=== PATIENT | female | born 1950 | race Caucasian/White ===

== ENCOUNTER 2017-06-22 14:10 | Inpatient (IN) | payer OTHER, MEDICARE ==
[~2017-06-22] VITALS: Ht 160 cm; Wt 83.2 kg
[~2017-06-22 14:10] MED LIST: LISINOPRIL10 MG PO; NORCO 5-325 TA1 EACH PO
--- OUTSIDE RECORDS SUMMARY | 2017-06-22 14:14 | XMS REPORT | Summary of Care ---
Author Author Jackeline Edmonds R.N. Organization Unknown Address Unknown Phone Unavailable Care Team Providers Care Garment Alteration Examiner Name Role Phone CHRISTINA HOPKINS M.D. Unavailable Unavailable Jackeline Edmonds R.N. Unavailable Unavailable Unavailable Unavailable Functional Status Name Dates Details Functional status health issues are not documented Status: Name Dates Details Cognitive status health issues are not documented Status: Problems Name Dates Details Encounter for routine gynecological examination with Papanicolaou smear of cervix (V72.31, Z01.419) Status: Active Ventral hernia (553.20, K43.9) Status: Active Postmenopausal state (V49.81, Z78.0) Status: Active Benign hypertension (401.1, I10) Status: Active Breast cancer screening (V76.10, Z12.31) Status: Active Medications Name Dates Details Lisinopril 20 MG Oral Tablet TAKE 1 TABLET TWICE DAILY Quantity: 180 KELLIE M.Rica, CHRISTINA Active Multi-Vitamin Daily TABS TAKE 1 TABLET DAILY. * Refills: 0 Active Fish Oil 1000 MG Oral Capsule TAKE 1 CAPSULE TWICE DAILY * Refills: 0 Active Calcium + D TABS TAKE 1 TABLET DAILY. * Refills: 0 Active Allergies and Adverse Reactions Name Dates Details No Known Allergies (Allergy) Status: Active Past Medical History Name Dates Details History of Hernia, incisional (553.21, K43.2) Status: Resolved History of hyperlipidemia (V12.29, Z86.39) Status: Resolved History of hypertension (V12.59, Z86.79) Status: Resolved History of malignant neoplasm of kidney (V10.52, Z85.528) Status: Resolved Procedures Procedure Dates Details History of Kidney Surgery Completed History of Tonsillectomy Completed Immunization Name Dates Details Fluzone INJ on: 08-Apr-2015 Family History Name Dates Details Family history of alcoholism (V17.0, Z81.1) Status: Active Family history of Bipolar disorder (manic depression) (296.80, F31.9) Status: Active Name Dates Details Family history of hypertension (V17.49, Z82.49) Status: Active Name Dates Details Family history of alcoholism (V17.0, Z81.1) Status: Active Family history of malignant neoplasm (V16.9, Z80.9) Status: Active Family history of cardiac disorder (V17.49, Z82.49) Status: Active Family history of hypertension (V17.49, Z82.49) Status: Active Family history of depression (V17.0, Z81.8) Status: Active Family history of type 2 diabetes mellitus (V18.0, Z83.3) Status: Active Name Dates Details Family history of depression (V17.0, Z81.8) Status: Active Social History Name Dates Details - Status: Name Dates Details Former smoker Vital Signs Date Test Result Details No Known Vitals to report Results Date Description Value Details Results not documented Plan of Care Name Dates Details Planned Observations Planned Goals not documented Interventions Provided Discussion/Summary* Guideline Used: * Other: Lola Padilla * Recommended Disposition: Call back with any further questions/concerns * Action Taken: * Patient informed/educated about nurse line * Intended Caller Action: * Other: Lola Padilla * Additional Information: * Caller verbalized understandings of this call and agree to the recommended disposition at this time. Caller was also educated on nurse triage line use & encouraged to call back for additional support or questions. Instructions Name Dates Details Instructions not documented Encounters Appointment; CHRISTINA HOPKINS M.D. Encounter Diagnosis: Problem not documented On: 01-Jan-2016 13:45 Appointment; DOTTY CARO M.D. Encounter Diagnosis: Problem not documented On: 14-Jan-2016 14:00 Appointment; RIK TERAN Encounter Diagnosis: Problem not documented On: 21-Jan-2016 9:00 Appointment; RIK TERAN Encounter Diagnosis: Problem not documented On: 26-Jan-2016 13:00 Appointment; DOTTY CARO M.D. Encounter Diagnosis: Problem not documented On: 05-Mar-2016 9:30
--- OUTSIDE RECORDS SUMMARY | 2017-06-22 14:14 | XMS REPORT | Continuity of Care Document ---
Author Author [facility] Organization [facility] Address [address] [place] [address] Phone Unavailable Care Team Providers Care Yacht Hand Name Role Phone CHRISTINA HOPKINS MD PCP Insurance Providers Guarantor Arianna Cole Address [address] [place] [address] Email [email or web address] Payer Miscellaneous Hmo Policy Number [id number] Subscriber's Name Arianna Cole Relationship 18 Self / Same As Patient Effective Date 15 Payer Medicare A Only Policy Number [id number] Subscriber's Name Julee Colethia A Relationship 18 Self / Same As Patient Effective Date 15 Advance Directives Directive Response Recorded Date/Time Does the patient have an advance directive? No 06/14/17 3:10pm If yes, is advance directive on file with [facility]? No 11/04/10 8:42am If not on file with [facility] will patient provide a copy? No 11/04/10 8:42am Do you have a Directive to Physician? No 06/13/17 4:39pm Do you have a Medical Power of Inspector Receiving? No 06/13/17 4:39pm Do you have an out of hospital Do Not Resuscitate Order? No 06/13/17 4:39pm Do you have any special needs we should be aware of? No 06/13/17 4:39pm Do you have a support person here with you today? Yes 06/13/17 4:39pm Did patient receive Notice of Privacy Practices? Yes 06/13/17 4:39pm Did patient receive patient rights and responsibilities? Yes 06/13/17 4:39pm Problems Medical Problem Onset Date Status Acute calculous cholecystitis Unknown Cramp in lower leg Unknown Acute Medications Current Home Medications Medication Dose Units Route Directions Days Qty Instructions Start Date Hydrocodone Bit/Acetaminophen (Datil 5-325 Tablet) 1 Each Tablet 1 Each Oral Every 4 Hours Lisinopril 10 Mg Tablet 20 Mg Oral Twice A Day 30 Tab Social History Social History Problem Response Recorded Date/Time Onset Date Status Hx Psychiatric Problems No 06/14/2017 3:10pm Not Applicable Not Applicable Smoking Status Start Date Stop Date Never Smoker Hospital Discharge Instructions No hospital discharge instruction information available. Plan of Care Discharge Date 06/18/17 3:11pm Disposition HOME, SELF-CARE Instructions/Education Provided Abdominal Pain - Adult Laparoscopy Stitches and Omari Care Prescriptions See Medication Section Additional Instructions/Education FOLLOW UP WITH MD HERNANDEZ AND MD MENDEZ IN ONE WEEK MD HERNANDEZ [phone] MD MENDEZ [phone] Functional Status Query Response Date Recorded FUNCTIONAL STATUS . June 15, 2017 2:39pm Assistive Devices None June 14, 2017 3:10pm Ambulation Ability Independent June 14, 2017 3:10pm Toileting Ability Independent June 17, 2017 1:00pm Allergies, Adverse Reactions, Alerts No known allergies. Immunizations No immunization information available. Vital Signs Acute Vital Signs Vital Response Date/Time Temperature (Fahrenheit) 97.4 degrees F (97.6 - 99.5) 06/18/2017 12:08pm Pulse Pulse Rate (adult) 63 bpm (60 - 90) 06/18/2017 12:08pm Respiratory Rate 18 bpm (12 - 24) 06/18/2017 12:08pm Blood Pressure 145/63 mm Hg 06/18/2017 12:08pm Height 5 ft 3 in 06/13/2017 3:42pm Weight 192.13 lb 06/17/2017 2:35am Body Mass Index 34.0 kg/m^2 06/17/2017 2:35am Results Laboratory Results Test Name Result Units Flags Reference Collection Date/Time Result Date/ Time Comments White Blood Count 5.73 x10e3/uL 4.8-10.8 06/17/2017 6:16am 06/17/2017 7 :08am Red Blood Count 2.91 x10e6/uL L 3.6-5.1 06/17/2017 6:16am 06/17/2017 7: 08am Hemoglobin 8.3 g/dL L 12.0-16.0 06/17/2017 6:16am 06/17/2017 7:08am Hematocrit 25.7 % L 34.2-44.1 06/17/2017 6:16am 06/17/2017 7:08am Mean Corpuscular Volume 88.3 fL 81-99 06/17/2017 6:16am 06/17/2017 7: 08am Mean Corpuscular Hemoglobin 28.5 pg 28-32 06/17/2017 6:16am 06/17/2017 7:08am Mean Corpuscular Hemoglobin Concent 32.3 g/dL 31-35 06/17/2017 6:16am 06/17/2017 7:08am Red Cell Distribution Width 13.0 % 11.7-14.4 06/17/2017 6:16am 2017 7:08am Platelet Count 202 x10e3/uL 140-360 06/17/2017 6:16am 06/17/2017 7: 08am Neutrophils (%) (Auto) 70.2 % 38.7-80.0 06/16/2017 6:08am 06/16/2017 6: 55am Lymphocytes (%) (Auto) 17.6 % L 18.0-39.1 06/16/2017 6:08am 06/16/2017 6 :55am Monocytes (%) (Auto) 9.0 % 4.4-11.3 06/16/2017 6:08am 06/16/2017 6: 55am Eosinophils (%) (Auto) 2.4 % 0.0-6.0 06/16/2017 6:08am 06/16/2017 6: 55am Basophils (%) (Auto) 0.3 % 0.0-1.0 06/16/2017 6:08am 06/16/2017 6:55am IM GRANULOCYTES % 0.5 % 0.0-1.0 06/16/2017 6:08am 06/16/2017 6:55am Neutrophils # (Auto) 6.1 2.1-6.9 06/16/2017 6:08am 06/16/2017 6:55am Lymphocytes # (Auto) 1.5 1.0-3.2 06/16/2017 6:08am 06/16/2017 6:55am Monocytes # (Auto) 0.8 0.2-0.8 06/16/2017 6:08am 06/16/2017 6:55am Eosinophils # (Auto) 0.2 0.0-0.4 06/16/2017 6:08am 06/16/2017 6:55am Basophils # (Auto) 0.0 0.0-0.1 06/16/2017 6:08am 06/16/2017 6:55am Absolute Immature Granulocyte (auto 0.04 x10e3/uL 0-0.1 06/16/2017 6: 08am 06/16/2017 6:55am Urine Color YELLOW YELLOW 06/14/2017 10:00am 06/14/2017 10:42am Urine Clarity CLEAR CLEAR 06/14/2017 10:00am 06/14/2017 10:42am Urine Specific [place] 1.020 1.010-1.025 06/14/2017 10:00am 2017 10:42am Urine pH 5 5 - 7 06/14/2017 10:00am 06/14/2017 10:42am Urine Leukocyte Esterase NEGATIVE NEGATIVE 06/14/2017 10:00am 2017 10:42am Urine Nitrite NEGATIVE NEGATIVE 06/14/2017 10:00am 06/14/2017 10: 42am Urine Protein 1+ H NEGATIVE 06/14/2017 10:00am 06/14/2017 10:42am Urine Glucose (UA) NEGATIVE NEGATIVE 06/14/2017 10:00am 06/14/2017 10 :42am Urine Ketones NEGATIVE NEGATIVE 06/14/2017 10:00am 06/14/2017 10: 42am Urine Urobilinogen 0.2 mg/dL 0.2 - 1 06/14/2017 10:00am 06/14/2017 10: 42am Urine Bilirubin NEGATIVE NEGATIVE 06/14/2017 10:00am 06/14/2017 10: 42am Urine Blood NEGATIVE NEGATIVE 06/14/2017 10:00am 06/14/2017 10:42am Urine WBC NONE /HPF 0-5 06/14/2017 10:00am 06/14/2017 10:46am Urine RBC NONE /HPF 0-5 06/14/2017 10:00am 06/14/2017 10:46am Urine Bacteria RARE /HPF NONE 06/14/2017 10:00am 06/14/2017 10:46am Urine Epithelial Cells NONE /LPF NONE 06/14/2017 10:00am 06/14/2017 10: 46am Urine Amorphous Sediment FEW FEW 06/14/2017 10:00am 06/14/2017 10: 46am Urine Coarse Granular Casts 1-5 H 0 06/14/2017 10:00am 06/14/2017 10: 46am Sodium Level 139 mmol/L 136-145 06/17/2017 6:16am 06/17/2017 7:25am Potassium Level 3.9 mmol/L 3.5-5.1 06/17/2017 6:16am 06/17/2017 7:25am Chloride Level 103 mmol/L 98-107 06/17/2017 6:16am 06/17/2017 7:25am Carbon Dioxide Level 30 mmol/L H 22-29 06/17/2017 6:16am 06/17/2017 7: 25am Anion Gap 9.9 mmol/L 8-06/17/2017 6:16am 06/17/2017 7:25am Blood Urea Nitrogen 9 mg/dL 7-06/17/2017 6:16am 06/17/2017 7:25am Creatinine 0.72 mg/dL 0.57-1.11 06/17/2017 6:16am 06/17/2017 7:25am BUN/Creatinine Ratio 13 6-25 06/17/2017 6:16am 06/17/2017 7:25am Estimat Glomerular Filtration Rate > 60 ML/MIN 60- 06/17/2017 6:16 7:25am Ranges were taken from the National Kidney Disease Education Program and the National Kidney Foundation literature. Reference ranges: 60 or greater: Normal 16-59 (for 3 consecutive months): Chronic kidney disease 15 or less: Kidney failure Glucose Level 105 mg/dL 74-118 06/17/2017 6:1606/17/2017 7:25am Calcium Level 8.1 mg/dL L 8.4-10.2 06/17/2017 6:1606/17/2017 7:25am Total Bilirubin 1.1 mg/dL 0.2-1.2 06/17/2017 6:1606/17/2017 7:25am Aspartate Amino Transf (AST/SGOT) 35 IU/L H 5-34 06/17/2017 6:1606/17 7:25am Alanine Aminotransferase (ALT/SGPT) 49 IU/L 0-55 06/17/2017 6:1601/2018 7:25am Total Protein 5.6 g/dL L 6.5-8.1 06/17/2017 6:1606/17/2017 7:25am Albumin 2.1 g/dL L 3.5-5.0 06/17/2017 6:1606/17/2017 7:25am Globulin 3.5 g/dL 2.3-3.5 06/17/2017 6:1606/17/2017 7:25am Albumin/Globulin Ratio 0.6 L 0.8-2.0 06/17/2017 6:1606/17/2017 7: 25am Alkaline Phosphatase 79 IU/L 40-150 06/17/2017 6:1606/17/2017 7: 25am B-Type Natriuretic Peptide 21.6 pg/mL 0-100 06/13/2017 6:30pm 2017 8:17pm Creatine Kinase 72 IU/L 29-168 06/13/2017 6:30pm 06/13/2017 8:15pm Creatine Kinase MB 0.70 ng/mL 0.00-5.00 06/13/2017 6:30pm 06/13/2017 8: 27pm Troponin I < 0.001 ng/mL 0-0.300 06/13/2017 6:30pm 06/13/2017 8:27pm Amylase Level 40 U/L 25-125 06/14/2017 2:40am 06/14/2017 3:16am Lipase 6 U/L L 8-78 06/14/2017 2:40am 06/14/2017 3:16am Procedures Procedure Status Date Provider(s) Laparoscopic cholecystectomy Completed 06/14/17 SURESH MENDEZ MD gallbladder Active 06/13/17 CLIFFORD CONNOR NP Computed tomography of abdomen and pelvis with contrast Active 06/13/17 CLIFFORD CONNOR NP Encounters Encounter Location Arrival/Admit Date Discharge/Depart Date Attending Provider Discharged Inpatient [facility] 06/14/17 3:26pm 06/18/17 3:11pm CATIA HERNANDEZ MD
[2017-06-22] MEDS ORDERED: SODIUM CHLORIDE 0.9% 1000ML 1,000 ML IV STA (14:16)
[2017-06-22] MEDS ORDERED: ONDANSETRON HCL INJ 2 MG/ML VIAL IV STA (14:16)
[2017-06-22] MEDS ORDERED: DIATRIZOATE MEGL/DIATRIZOA SOD 30 ML BTL PO ONE (14:44)
[2017-06-22 15:03] LABS: BASOPHILS % 0.5 % (0.0-1.0); EOSINOPHILS # (AUTO) 0.1 (0.0-0.4); EOSINOPHILS % 1.4 % (0.0-6.0); HEMATOCRIT 36.2 % (34.2-44.1); HEMOGLOBIN 11.5 g/dL (12.0-16.0); LYMPHOCYTES # (AUTO) 1.6 (1.0-3.2); LYMPHOCYTES % 18.8 % (18.0-39.1); MEAN CORPUSCULAR HEMOGLOBIN 27.8 pg (28-32); MEAN CORPUSCULAR HGB CONC 31.8 g/dL (31-35); MEAN CORPUSCULAR VOLUME 87.4 fL (81-99); MONOCYTES # (AUTO) 0.3 (0.2-0.8); MONOCYTES % 3.5 % (4.4-11.3); NEUTROPHILS # (AUTO) 6.3 (2.1-6.9); NEUTROPHILS % 75.1 % (38.7-80.0); PLATELET COUNT 343 x10e3/uL (140-360); RED BLOOD COUNT 4.14 x10e6/uL (3.6-5.1); RED CELL DISTRIBUTION WIDTH 13.4 % (11.7-14.4)
[2017-06-22] MEDS ORDERED: MORPHINE SULFATE 5 MG/ML VIAL IV ONE (15:15)
[2017-06-22 15:20] LABS: ALANINE AMINOTRANSFERASE 157 IU/L (0-55); ALBUMIN 3.2 g/dL (3.5-5.0); ALBUMIN/GLOBULIN RATIO 0.7 (0.8-2.0); ALKALINE PHOSPHATASE 105 IU/L (40-150); ANION GAP 16.6 mmol/L (8-16); BLOOD UREA NITROGEN 18 mg/dL (7-26); BUN/CREATININE RATIO 22 (6-25); CALCIUM 8.8 mg/dL (8.4-10.2); CARBON DIOXIDE 22 mmol/L (22-29); CHLORIDE 106 mmol/L (98-107); CREATININE, SERUM 0.81 mg/dL (0.57-1.11); EST GLOMERULAR FILTRATION RATE > 60 ML/MIN (60-); GLUCOSE 128 mg/dL (74-118); LIPASE 17 U/L (8-78); POTASSIUM 4.6 mmol/L (3.5-5.1); SODIUM 140 mmol/L (136-145)
[2017-06-22] MEDS ORDERED: MORPHINE SULFATE 2 MG/ML SYR IV SCH (15:30)
--- NOTE | 2017-06-22 18:22 | Diagnostic Imaging Report ---
PROCEDURE: CT ABDOMEN AND PELVIS WITH CONTRAST TECHNIQUE: The abdomen and pelvis were scanned utilizing a multidetector helical scanner from the diaphragm to the lesser trochanter after the IV administration of 100 cc of Isovue 370. Coronal and sagittal multiplanar reformations were obtained. DLP: 610.02 mGy-cm COMPARISON: CT 06/13/2017 INDICATIONS: MID ABDOMINAL PAIN, post cholecystectomy FINDINGS: LOWER THORAX: Mild right basilar atelectasis. HEPATOBILIARY: No focal hepatic lesions. No biliary ductal dilatation. New post-surgical changes related to open cholecystectomy with placement of a drainage catheter in the cholecystectomy bed. No drainable fluid collections in the surgical bed. Mild regional stranding likely represents post-operative changes. SPLEEN: No splenomegaly. PANCREAS: No focal masses or ductal dilatation. ADRENALS: No adrenal nodules. KIDNEYS/URETERS: Right kidney is absent. Left renal 2.2 cm cyst. No hydronephrosis, stones, or solid mass lesions. PELVIC ORGANS/BLADDER: Rounded 3 cm prominence along the posterior right uterine body likely represents a fibroid. Urinary bladder is without focal thickening. PERITONEUM / RETROPERITONEUM: No free air. Stranding in the right upper quadrant and fluid and stranding within the hernia sac. LYMPH NODES: No lymphadenopathy. VESSELS: Moderate scattered atherosclerotic calcifications. No abdominal aortic aneurysm. GI TRACT: Small bowel obstruction within an umbilical hernia resulting in a closed loop obstruction with two transition points (coronal image 29 with upstream dilatation, and coronal image 28 with collapse of the exiting small bowel). Fluid and stranding is noted within the hernia sac. Involved bowel wall appears slightly more hypoattenuating than the bowel wall outside the hernia. No wall thickening or pneumatosis. The hernia sac measures approximately 9.4 x 6.9 x 8 cm with 2.2 x 2.7 cm neck. BONES AND SOFT TISSUES: Skin kvng along an oblique right upper quadrant incision. Degenerative changes of the spine. Slight retrolisthesis of L2 on L3. IMPRESSION: 1. Closed loop obstruction of a small bowel loop within an umbilical hernia. Associated fluid and stranding within the hernia sac, and slightly decreased enhancement of the involved bowel wall are concerning for strangulation. 2. Interval open cholecystectomy with associated post-operative stranding. Right upper quadrant drain in place. No drainable fluid collections. Findings discussed with Dr. Gates on 06/22/2017 at 6:10 pm. Dictated by: Luis Manuel Bryan M.D. on 06/22/2017 at 18:22 Electronically approved by: Luis Manuel Bryan M.D. on 06/22/2017 at 18:22
--- OUTSIDE RECORDS SUMMARY | 2017-06-22 18:57 | XMS REPORT | Summary of Care ---
Author Author Partha Mccann, Ingr[place] Organization Unknown Address [facility] Phone Unavailable Care Team Providers Care Skilled Helper Name Role Phone CHRISTINA HOPKINS M.D. Unavailable Unavailable Ingris Chavis R.N. Unavailable Unavailable Unavailable Unavailable Functional Status [...] 1 TABLET TWICE DAILY Quantity: 180 KELLIE M.D., CHRISTINA Active Multi-Vitamin Daily TABS TAKE 1 [...] Interventions Provided Discussion/Summary* Guideline Used: * Other: ER physician call * Recommended Disposition: Connect with Dr Padilla * Action Taken: * Patient informed/educated about nurse line * Intended Caller Action: * Other: speak with Dr Padilla * Additional Information: * [place] text Dr Padilla @ 1816. Informed caller to call back if no response in 30 mins. Verbalized understanding of call. Instructions Name Dates Details Instructions not documented [...]
[2017-06-22 19:28] VITALS: BP 190/77
[2017-06-22 19:35] VITALS: BP 190/77
[2017-06-22] MEDS: HYDROMORPHONE 1MG/1ML INJ IV PRN ×2 (19:45→23:33)
[2017-06-22] MEDS: ONDANSETRON HCL INJ 2 MG/ML VIAL IV PRN ×2 (19:45→23:33)
[2017-06-22] MEDS: SODIUM CHLORIDE 0.9% 1000ML 1,000 ML IV SCH (19:50)
[2017-06-22] MEDS: PIPERACILLIN/TAZO 2.25 GM 50 ML IV SCH (19:50)
--- NOTE | 2017-06-22 19:58 | Consultation ---
DATE OF CONSULTATION: June 22, 2017 REFERRING PHYSICIAN: Dr. Jeremiah Padilla. HISTORY OF PRESENT ILLNESS: Patient is a 66-year-old female known to me. She was in the hospital and had surgery about a week ago for acute cholecystitis. She was doing well at home and then she developed sudden development of pain in the lower abdomen with nausea and constipation. She came to the emergency room where she was found to have hernia in the lower midline with a small bowel obstruction caused by the hernia. Patient says she feels better now, but she is still not passing any flatus. PAST MEDICAL HISTORY: Significant for hypertension for which she takes lisinopril. Besides the previous hernia repair, she has had previous nephrectomy and recent cholecystectomy. MEDICATIONS: The only medication at home was lisinopril. She has been taking pain medicine. ALLERGIES: NO KNOWN DRUG ALLERGIES. FAMILY HISTORY: Noncontributory. SOCIAL HISTORY: Does not smoke cigarettes or drink alcohol. REVIEW OF SYSTEMS: As stated above. She has not had any fever. PHYSICAL EXAMINATION: VITALS: Normal. She is not tachycardic. GENERAL: The patient is awake and alert. HEENT: Unremarkable. Sclerae is nonicteric. NECK: No masses. LUNGS: Equal breath sounds, clear bilaterally. CARDIAC: Regular rate and rhythm. Normal S1 and S2 without murmur, S3 or S4. ABDOMEN: Has a right subcostal wound which is intact with small amount of erythema around the kvng which are in place. There is a drain with serous drainage. In the lower midline, there is a mass which is mildly tender but not reducible in the area where she had previous surgery. EXTREMITIES: No edema. LABORATORY DATA: White blood cell count is normal at 8.3 with essentially normal differential. Hemoglobin and hematocrit are normal. Chemistries are essentially normal. ASSESSMENT: This is a 66-year-old female now with small bowel obstruction with incisional hernia. The hernia appears very wide mouthed on the CT scan and does not appear to be any ischemic bowel. PLAN: Repair the hernia possibly with mesh and release the small bowel obstruction. Probably this will be done tomorrow as the patient has no signs of ischemic bowel at this time. Procedure was explained to the patient including risks, benefits and alternatives. She understands the procedures. She has had the opportunity to ask questions. Thank you for asking me to see Ms. Cole. Job#: [id number] GH
[2017-06-22] MEDS ORDERED: SODIUM CHLORIDE 0.9% 50ML 50 ML ONE (22:30)
[2017-06-22] MEDS ORDERED: IOPAMIDOL 370 MG/ML 200 ML INFUS..BTL INJ ONE (22:30)
[2017-06-23] VITALS (8 sets, daily range): BP systolic 124–149; BP diastolic 60–68
[2017-06-23] MEDS: PIPERACILLIN/TAZO 2.25 GM 50 ML IV SCH ×3 (02:30→17:15)
[2017-06-23] MEDS: ONDANSETRON HCL INJ 2 MG/ML VIAL IV PRN ×2 (03:30→09:50)
[2017-06-23] MEDS: HYDROMORPHONE 1MG/1ML INJ IV PRN ×3 (03:30→12:35)
[2017-06-23] MEDS: SODIUM CHLORIDE 0.9% 1000ML 1,000 ML IV SCH ×2 (03:30→10:09)
[2017-06-23] MEDS ORDERED: LISINOPRIL10 MG PO (04:35)
[2017-06-23] MEDS ORDERED: PROMETHAZINE 12.5MG/ NACL 0.9% 12.5 MG/50 ML BAG IV PRN (06:45)
--- NOTE | 2017-06-23 10:56 | Diagnostic Imaging Report ---
This report includes an Addendum and supersedes previous reports for this exam. PROCEDURE:X-RAY ABDOMEN - KUB COMPARISON:None. INDICATIONS:Not provided. FINDINGS: There are surgical clips in the right upper quadrant from an open cholecystectomy. Surgical drain also present. Multiple surgical skin kvng are present. Moderately dilated loops of small bowel are most compatible with an ileus. There are no masses or abnormal calcifications. There is no evidence of free air. No acute osseous abnormalities are present. Contrast present within the bladder. CONCLUSION: Dilated loops of small bowel compatible with a postoperative ileus. Sven Hollingsworth D.O. Dictated by: Sven Hollingsworth D.O. on 06/23/2017 at 10:56 Electronically approved by: Sven Hollingsworth D.O. on 06/23/2017 at 10:56 ADDENDUM: Exam was performed to evaluate position of an NG tube. The tube tip is at the GE junction and should be advanced. Sven Hollingsworth D.O. Dictated by: Sven Hollingsworth D.O. on 06/23/2017 at 11:16 Electronically approved by: Sven Hollingsworth D.O. on 06/23/2017 at 11:16
[2017-06-23] MEDS: SODIUM CHLORIDE 0.9% 250ML IRRIG IR SCH ×4 (12:13→20:45)
[2017-06-23] MEDS ORDERED: BACITRACIN 50,000 UNIT VIAL ONE (13:47)
--- NOTE | 2017-06-23 13:48 | Diagnostic Imaging Report ---
PROCEDURE:X-RAY ABDOMEN - KUB COMPARISON:Patients [facility], DX, ABDOMEN-1VIEW (KUB), 06/23/2017, 10:06. INDICATIONS:NG TUBE PLACEMENT FINDINGS: See conclusion. CONCLUSION: 1. Limited view of the abdomen. Most of the right abdomen is excluded from the image. 2. Enteric tube in place, with distal tip projecting in the region of the stomach body. The proximal side-port is near the GE junction. Further advancement is recommended. 3. Multiple mildly dilated loops of small bowel are noted in the midabdomen. 4. Right basal atelectatic changes. Jose Antonio Walls M.D. Dictated by: Jose Antonio Walls M.D. on 06/23/2017 at 13:48 Electronically approved by: Jose Antonio Walls M.D. on 06/23/2017 at 13:48
[2017-06-23 13:56] LABS: BILIRUBIN,URINE NEGATIVE (NEGATIVE); COLOR,URINE YELLOW (YELLOW); KETONES,URINE NEGATIVE (NEGATIVE); LEUKOCYTE ESTERASE ,URINE NEGATIVE (NEGATIVE); NITRITE,URINE NEGATIVE (NEGATIVE); PROTEIN,URINE DIPSTICK NEGATIVE (NEGATIVE); URINE UROBILINOGEN 0.2 mg/dL (0.2 - 1)
[2017-06-23 13:57] LABS: CLARITY,URINE CLEAR (CLEAR)
[2017-06-23 14:17] LABS: EPITHELIAL CELLS,URINE MANY /LPF; TRANSITIONAL EPI CELLS,URINE FEW
[2017-06-23] MEDS ORDERED: SUGAMMADEX SODIUM 200 MG/2 ML VIAL IV ONE (15:56)
[2017-06-23] MEDS ORDERED: MORPHINE SULFATE 5 MG/ML VIAL IV PRN (16:00)
[2017-06-23] MEDS ORDERED: ONDANSETRON HCL INJ 2 MG/ML VIAL IV PRN (16:00)
[2017-06-23] MEDS ORDERED: MORPHINE SULFATE 2 MG/ML SYR IV PRN (16:15)
[2017-06-23] MEDS ORDERED: FENTANYL CITRATE/PF 100MCG/2 ML INJ ONE ×2 (16:47→18:33)
--- NOTE | 2017-06-23 16:47 | Operative Report ---
DATE OF PROCEDURE: June 23, 2017 PREOPERATIVE DIAGNOSIS: Incarcerated recurrent incisional hernia. Small bowel obstruction. POSTOPERATIVE DIAGNOSIS: Incarcerated recurrent incisional hernia. Small bowel obstruction. PROCEDURES: 1. Repair of incarcerated, recurrent incisional hernia. 2. Release of small bowel obstruction. CARPENTER LABOR SUPERVISOR: None. ANESTHESIA: General. INDICATIONS AND FINDINGS: A 66-year-old female admitted to the hospital with complaints of abdominal pain, nausea and vomiting. Workup revealed small bowel obstruction secondary to an incarcerated hernia. Surgery based on hernia at site of previous hernia repair in the right lower abdomen containing loop of small bowel. The bowel was dilated proximally and collapsed distally and once it was were released it was found that although initially was somewhat hemorrhagic, color improved once it was released and it appeared viable. TECHNIQUE: After adequate general endotracheal anesthesia with the patient in the supine position, the abdomen was prepped and draped in sterile fashion with [place] solution. Going through the previous wound in the right lower quadrant, incision was made and carried down through subcutaneous tissue. There was a herniated mass that was apparent and hernia sac was opened. There was a large amount of serous fluid which was drained. There was small bowel within the hernia sac. The fascial defect was extended inferiorly to release of small bowel. The small bowel was delivered up into the wound. It was noted to be dilated proximally, collapsed distally. Once the bowel was released, the color improved. It had been hemorrhagic but this improved. It became more pink and appeared viable. It was then returned to the peritoneal cavity. There were some adhesions involving the omentum which were lysed. Hernia was then repaired directly. There was mesh just above where the hernia was apparently from previous repair. The hernia was closed with running suture of number 1 Prolene. The wound was irrigated with saline, inspected for hemostasis which was seen to be adequate. The wound was then closed with 2-0 Vicryl subcutaneous tissue and kvgn for the skin. Sterile dressing was applied. Patient tolerated procedure well. Estimated blood loss was 25 mL. There were no complications. All counts were correct. Patient was taken to the recovery room in satisfactory condition. Job#: [id number]
[2017-06-23] MEDS: DEXTROSE 5%/LACTATED RINGERS 1,000 ML IV SCH (17:15)
[2017-06-23] MEDS ORDERED: EPHEDRINE SULFATE INJ 50 MG/10 ML SYR ONE (18:01)
[2017-06-23] MEDS ORDERED: DEXAMETHASONE SOD PHOS INJ 4 MG/ML VIAL ONE (18:01)
[2017-06-23] MEDS ORDERED: PHENYLEPHRINE HCL 1% 10 MG/ML VIAL ONE (18:01)
[2017-06-23] MEDS ORDERED: PROPOFOL IV EMULSION 10 MG/ML 20 ML VIAL ONE (18:01)
[2017-06-23] MEDS ORDERED: ROCURONIUM BROMIDE 10 MG/ML 5ML VIAL ONE (18:01)
[2017-06-23] MEDS ORDERED: ONDANSETRON HCL INJ 2 MG/ML VIAL ONE (18:01)
[2017-06-23] MEDS ORDERED: CEFOXITIN SOD 1 GM VIAL ONE (18:01)
[2017-06-23] MEDS ORDERED: SUCCINYLCHOLINE 200 MG/10 ML SYR ONE (18:01)
[2017-06-23] MEDS ORDERED: SEVOFLURANE INHAL SOLN 250 ML PEN BTL ONE (18:01)
[2017-06-23] MEDS ORDERED: MIDAZOLAM HCL 2 MG/2 ML VIAL ONE (18:33)
--- NOTE | 2017-06-23 19:25 | Diagnostic Imaging Report ---
EXAM: ABDOMEN-1VIEW (KUB), DATE: 06/23/2017 6:39 PM INDICATION: N G-tube placement. COMPARISON: 06/23/2017 at 12:46 PM hours. FINDINGS: LINES/TUBES: NG tube with distal tip projected on the right upper quadrant, likely within the gastric antrum. BOWEL PATTERN: Mild distention of multiple small bowel loops again observed. SOFT TISSUES: No abnormal calcifications. Cholecystectomy clips. LUNG BASES: Not included BONES: No acute findings. IMPRESSION: NG tube with distal tip projected on the gastric antrum. Multiple mildly dilated small bowel loops suggestive of ileus. Recommend follow-up to resolution. Signed by: Dr. Freddie Enamorado M.D. on 06/23/2017 7:21 PM
[2017-06-24] MEDS: SODIUM CHLORIDE 0.9% 250ML IRRIG IR SCH ×4 (00:14→11:23)
[2017-06-24 00:51] VITALS: BP 126/60
[2017-06-24] MEDS: PIPERACILLIN/TAZO 2.25 GM 50 ML IV SCH ×3 (01:56→18:00)
[2017-06-24] MEDS: DEXTROSE 5%/LACTATED RINGERS 1,000 ML IV SCH ×4 (01:56→19:58)
[2017-06-24 04:00] VITALS: BP 126/58
[2017-06-24] MEDS: HYDROMORPHONE 1MG/1ML INJ IV PRN ×3 (04:10→15:25)
[2017-06-24 06:01] LABS: BASOPHILS % 0.2 % (0.0-1.0); EOSINOPHILS # (AUTO) 0.1 (0.0-0.4); EOSINOPHILS % 0.6 % (0.0-6.0); HEMATOCRIT 28.7 % (34.2-44.1); HEMOGLOBIN 9.2 g/dL (12.0-16.0); LYMPHOCYTES # (AUTO) 1.6 (1.0-3.2); LYMPHOCYTES % 17.2 % (18.0-39.1); MEAN CORPUSCULAR HEMOGLOBIN 27.8 pg (28-32); MEAN CORPUSCULAR HGB CONC 32.1 g/dL (31-35); MEAN CORPUSCULAR VOLUME 86.7 fL (81-99); MONOCYTES # (AUTO) 0.9 (0.2-0.8); MONOCYTES % 10.1 % (4.4-11.3); NEUTROPHILS # (AUTO) 6.4 (2.1-6.9); NEUTROPHILS % 71.5 % (38.7-80.0); PLATELET COUNT 349 x10e3/uL (140-360); RED BLOOD COUNT 3.31 x10e6/uL (3.6-5.1); RED CELL DISTRIBUTION WIDTH 13.7 % (11.7-14.4)
[2017-06-24 06:23] LABS: ANION GAP 9.9 mmol/L (8-16); BLOOD UREA NITROGEN 12 mg/dL (7-26); BUN/CREATININE RATIO 15 (6-25); CALCIUM 7.8 mg/dL (8.4-10.2); CARBON DIOXIDE 28 mmol/L (22-29); CHLORIDE 107 mmol/L (98-107); CREATININE, SERUM 0.81 mg/dL (0.57-1.11); EST GLOMERULAR FILTRATION RATE > 60 ML/MIN (60-); GLUCOSE 121 mg/dL (74-118); POTASSIUM 3.9 mmol/L (3.5-5.1); SODIUM 141 mmol/L (136-145)
[2017-06-24 07:00] VITALS: BP 127/55
[2017-06-24 15:54] VITALS: BP 111/58
[2017-06-24 20:12] VITALS: BP 133/61
[2017-06-25 00:38] VITALS: BP 127/57
[2017-06-25] MEDS: PIPERACILLIN/TAZO 2.25 GM 50 ML IV SCH ×3 (03:01→17:51)
[2017-06-25] MEDS: DEXTROSE 5%/LACTATED RINGERS 1,000 ML IV SCH ×2 (04:46→16:25)
[2017-06-25 05:17] VITALS: BP 121/62
[2017-06-25 06:16] LABS: HEMATOCRIT 27.2 % (34.2-44.1); HEMOGLOBIN 8.6 g/dL (12.0-16.0); MEAN CORPUSCULAR HEMOGLOBIN 27.8 pg (28-32); MEAN CORPUSCULAR HGB CONC 31.6 g/dL (31-35); PLATELET COUNT 275 x10e3/uL (140-360); RED BLOOD COUNT 3.09 x10e6/uL (3.6-5.1); RED CELL DISTRIBUTION WIDTH 13.4 % (11.7-14.4)
[2017-06-25 06:46] LABS: ANION GAP 9.7 mmol/L (8-16); BLOOD UREA NITROGEN 9 mg/dL (7-26); BUN/CREATININE RATIO 12 (6-25); CALCIUM 7.6 mg/dL (8.4-10.2); CARBON DIOXIDE 27 mmol/L (22-29); CHLORIDE 107 mmol/L (98-107); CREATININE, SERUM 0.78 mg/dL (0.57-1.11); EST GLOMERULAR FILTRATION RATE > 60 ML/MIN (60-); GLUCOSE 107 mg/dL (74-118); POTASSIUM 3.7 mmol/L (3.5-5.1); SODIUM 140 mmol/L (136-145)
[2017-06-25 08:00] VITALS: BP_SYST 122; BP_SYST 146; BP_DIAS 66
[2017-06-25 10:35] LABS: EOSINOPHILS % (MANUAL) 6 % (0-7); LYMPHOCYTES % (MANUAL) 25 % (19-48); MONOCYTES % (MANUAL) 11 % (3.4-9.0); NEUTROPHILS % (MANUAL) 58 % (40-74); PLATELET ESTIMATE ADEQUATE; PLATELET MORPHOLOGY COMMENT NORMAL; RBC MORPHOLOGY COMMENT NORMAL
[2017-06-25 12:00] VITALS: BP 135/67
[2017-06-25 16:00] VITALS: BP 136/64
[2017-06-25 17:41] LABS: % IRON SATURATION 5 % (15-50); IRON 14 ug/dL (50-170); TOTAL IRON BINDING CAPACITY 255 ug/dL (261-478); TRANSFERRIN 182 mg/dL (180-382)
[2017-06-25] MEDS: HYDROMORPHONE 1MG/1ML INJ IV PRN (17:51)
[2017-06-25 20:00] VITALS: BP 142/68
[2017-06-26 00:33] VITALS: BP 148/84
[2017-06-26] MEDS: DEXTROSE 5%/LACTATED RINGERS 1,000 ML IV SCH ×4 (01:52→23:57)
[2017-06-26] MEDS: PIPERACILLIN/TAZO 2.25 GM 50 ML IV SCH ×3 (01:52→18:13)
[2017-06-26 04:46] VITALS: BP 133/69
[2017-06-26 07:56] VITALS: BP 145/65
[2017-06-26] MEDS ORDERED: DOCUSATE SODIUM 100 MG CAP PO PRN (12:15)
[2017-06-26 20:03] VITALS: BP 149/66
[2017-06-27 01:02] VITALS: BP 147/71
[2017-06-27] MEDS: PIPERACILLIN/TAZO 2.25 GM 50 ML IV SCH ×3 (01:49→17:38)
[2017-06-27 04:48] VITALS: BP 159/84
[2017-06-27] MEDS: DEXTROSE 5%/LACTATED RINGERS 1,000 ML IV SCH ×3 (07:57→23:57)
[2017-06-27 08:00] VITALS: BP 147/67
[2017-06-27 09:07] VITALS: BP 147/67
[2017-06-27 12:00] VITALS: BP 144/67
[2017-06-27 19:48] VITALS: BP 125/59
[2017-06-28 00:37] VITALS: BP 118/59
[2017-06-28] MEDS: PIPERACILLIN/TAZO 2.25 GM 50 ML IV SCH (01:32)
[2017-06-28 02:05] VITALS: BP 118/59
[2017-06-28 04:43] VITALS: BP 141/65
[2017-06-28 08:04] VITALS: BP 185/78
[2017-06-28 08:37] VITALS: BP 137/63
== END 2017-06-28 09:05 | disposition home or self-care (01) | DRG 337 ==
LOC: ER 14:10 → MED/SURG2 18:54
PROVIDERS: ADMIT Internal Medicine; ATTEND Internal Medicine
PROC: 0DN80ZZ Release Small Intestine, Open Approach (ICD-10-PCS; 2017-06-23)
PROC: 0WQF0ZZ Repair Abdominal Wall, Open Approach (ICD-10-PCS; principal; 2017-06-23 13:30)
DX: K43.0 Incisional hernia with obstruction, without gangrene (principal); I10 Essential (primary) hypertension; K59.00 Constipation, unspecified; Z90.5 Acquired absence of kidney; Z90.49 Acquired absence of other specified parts of digestive tract
CPT/HCPCS: 36415; 74018; 74177; 80048; 80053; 81001; 82270; 83540; 83690; 84466; 85007; 85025; 85027; 87040; 87086; 99284; J0694; J1100; J1170; J2250; J2270; J2370; J2405; J2543; J2550; J7030; J7120; Q9967